=== PATIENT | female | born 1980 | race American Indian/Alaskan Native ===

== ENCOUNTER 2020-06-07 13:20 | Emergency (ER) | payer MEDICAID ==
--- NOTE | 2020-06-07 16:26 | Emergency Department Report ---
Blank Doc - Documentation Documentation: 39-year-old female that presents with vaginal bleeding and pelvic pain. This initial assessment/diagnostic orders/clinical plan/treatment(s) is/are subject to change based on patient's health status, clinical progression and re- assessment by fellow clinical providers in the ED. Further treatment and workup at subsequent clinical providers discretion. Patient/guardians urged not to elope from the ED as their condition may be serious if not clinically assessed and managed. Initial orders include: 1- Patient sent to [facility] for further evaluation and treatment 2- labs 3- UA 4- US OB
[2020-06-07 17:02] LABS: Bilirubin,Urine NEG (Negative); Blood,Urine MOD (Negative); Color,Urine Yellow (Yellow); Mucus,Urine FEW /HPF; Protein,Urine <15 mg/dL mg/dL (Negative); Urobilinogen,Urine < 2.0 mg/dL (<2.0)
--- NOTE | 2020-06-07 17:47 | Ultrasound Report ---
ULTRASOUND OBSTETRIC INDICATION: pelvic pain and vaginal bleeding. TECHNIQUE: Transabdominal and Transvaginal. COMPARISON: None available. FINDINGS: GESTATIONAL SAC: Well-defined oval shape and intrauterine in location. YOLK SAC: No significant abnormality. EMBRYO/FETUS: - [place]-Rump Length = 5.8 cm = 12 weeks, 2 day(s). - Heart Rate = No cardiac activity detected. ADNEXA: No significant abnormality. FREE FLUID: None. ADDITIONAL FINDINGS: A 1.3 cm nabothian cyst is noted at the level of the cervix. Multiple probable s ubcentimeter fibroids are also noted. IMPRESSION: Sonographic evidence of a miscarriage. Please correlate with the clinical findings. Signer Name: Misael Gifford MD Signed: 06/07/2020 5:43 PM Workstation Name: [email or web address]
--- NOTE | 2020-06-07 17:47 | Ultrasound Report ---
ULTRASOUND OBSTETRIC INDICATION: pelvic pain and vaginal bleeding. TECHNIQUE: Transabdominal and Transvaginal. COMPARISON: None available. FINDINGS: GESTATIONAL SAC: Well-defined oval shape and intrauterine in location. YOLK SAC: No significant abnormality. EMBRYO/FETUS: - [place]-Rump Length = 5.8 cm = 12 weeks, 2 day(s). - Heart Rate = No cardiac activity detected. ADNEXA: No significant abnormality. FREE FLUID: None. ADDITIONAL FINDINGS: A 1.3 cm nabothian cyst is noted at the level of the cervix. Multiple probable s ubcentimeter fibroids are also noted. IMPRESSION: Sonographic evidence of a miscarriage. Please correlate with the clinical findings. Signer Name: Misael Gifford MD Signed: 06/07/2020 5:43 PM Workstation Name: [id number]
[2020-06-07 18:28] LABS: Basophils % (Auto) 0.3 % (0.0-1.8); Eosinophils # (Auto) 0.4 K/mm3 (0.0-0.4); Eosinophils % (Auto) 6.1 % (0.0-4.3); Hemoglobin 12.2 gm/dl (10.1-14.3); Lymphocytes # (Auto) 2.6 K/mm3 (1.2-5.4); Lymphocytes % (Auto) 35.4 % (13.4-35.0); Mean Corpuscular HGB Conc 35 % (30-34); Mean Corpuscular Volume 83 fl (79-97); Monocytes # (Auto) 0.3 K/mm3 (0.0-0.8); Monocytes % (Auto) 4.1 % (0.0-7.3); Platelet Count 161 K/mm3 (140-440); Red Blood Count 4.22 M/mm3 (3.65-5.03); Red Cell Distribution Width 12.7 % (13.2-15.2)
--- NOTE | 2020-06-07 22:31 | Emergency Department Report ---
ED Female HPI - General Chief complaint: Vaginal Bleeding Stated complaint: CRAMPING Time Seen by Provider: 06/07/20 16:25 Source: patient Mode of arrival: Ambulatory Limitations: No Limitations - History of Present Illness Initial comments: 39-year-old F [place] female presents emerged department reporting ~13 weeks developing some spotting to the vaginal area started this morning around 5 AM. Patient touch base with the hand tool filer around 6:30 AM at home advised to come to emergency department to be evaluated for a miscarriage. She reports having vague cramping and continued spotting with no nausea, vomiting, no fever, chills, sweats, no chest pain, no palpitations, no hemoptysis no hematemesis no hematochezia. MD Complaint: pelvic pain Location: suprapubic Radiation: suprapubic Severity: mild, moderate Quality: cramping Consistency: constant Improves with: none Worsens with: none Associated Symptoms: vaginal bleeding. denies: loss of appetite, dysuria, hematuria, syncope - Related Data Sexually active: No Allergies Allergy/AdvReac Type Severity Reaction Status Date / Time No Known Allergies Allergy Unverified 06/07/20 14:44 ED Review of Systems ROS: Stated complaint: CRAMPING Other details as noted in HPI Comment: All other systems reviewed and negative ED Past Medical Hx - Past Medical History Previous Medical History?: No - Surgical History Past Surgical History?: No - Social History Smoking Status: Never Smoker Substance Use Type: None ED Physical Exam - General Limitations: No Limitations General appearance: alert, in no apparent distress - Head Head exam: Present: atraumatic, normocephalic - Eye Eye exam: Present: normal appearance, PERRL, EOMI Pupils: Present: normal accommodation - ENT ENT exam: Present: normal exam, normal orophraynx, mucous membranes moist - Neck Neck exam: Present: normal inspection, full ROM - Respiratory Respiratory exam: Present: normal lung sounds bilaterally. Absent: respiratory distress, wheezes, rales, chest wall tenderness, accessory muscle use - Cardiovascular Cardiovascular Exam: Present: regular rate, normal rhythm. Absent: systolic murmur, diastolic murmur, rubs, gallop - GI/Abdominal GI/Abdominal exam: Present: soft, normal bowel sounds - Extremities Exam Extremities exam: Present: normal inspection - Back Exam Back exam: Present: normal inspection - Neurological Exam Neurological exam: Present: alert, oriented X3 - Psychiatric Psychiatric exam: Present: normal affect, normal mood - Skin Skin exam: Present: warm, dry, intact, normal color. Absent: rash ED Course Vital Signs 06/07/20 16:26 Temperature 98.4 F Pulse Rate 77 Respiratory 18 Rate Blood Pressure 128/74 O2 Sat by Pulse 100 Oximetry ED Medical Decision Making - Lab Data Result diagrams: 06/07/20 17:34 Lab Results 06/07/20 06/07/20 06/07/20 Range/Units 16:43 17:34 17:34 WBC 7.3 (4.5-11.0) K/mm3 RBC 4.22 (3.65-5.03) M/mm3 Hgb 12.2 (10.1-14.3) gm/dl Hct 35.0 (30.3-42.9) % MCV 83 (79-97) fl MCH 29 (28-32) pg MCHC 35 H (30-34) % RDW 12.7 L (13.2-15.2) % Plt Count 161 (140-440) K/mm3 Lymph % (Auto) 35.4 H (13.4-35.0) % [place] % (Auto) 4.1 (0.0-7.3) % Eos % (Auto) 6.1 H (0.0-4.3) % Baso % (Auto) 0.3 (0.0-1.8) % Lymph # (Auto) 2.6 (1.2-5.4) K/mm3 [place] # (Auto) 0.3 (0.0-0.8) K/mm3 Eos # (Auto) 0.4 (0.0-0.4) K/mm3 Baso # (Auto) 0.0 (0.0-0.1) K/mm3 Seg Neutrophils % 54.1 (40.0-70.0) % Seg Neutrophils # 4.0 (1.8-7.7) K/mm3 HCG, Quant 5995 H (0-4) mIU/mL Urine Color Yellow (Yellow) Urine Turbidity Clear (Clear) Urine pH 5.0 (5.0-7.0) Ur Specific [place] 1.017 (1.003-1.030) Urine Protein <15 mg/dl (Negative) mg/dL Urine Glucose (UA) Neg (Negative) mg/dL Urine Ketones Neg (Negative) mg/dL Urine Blood Mod (Negative) Urine Nitrite Neg (Negative) Urine Bilirubin Neg (Negative) Urine Urobilinogen < 2.0 (<2.0) mg/dL Ur Leukocyte Esterase Sm (Negative) Urine WBC (Auto) 1.0 (0.0-6.0) /HPF Urine RBC (Auto) 2.0 (0.0-6.0) /HPF U Epithel Cells (Auto) 2.0 (0-13.0) /HPF Urine Mucus Few /HPF Blood Type 06/07/20 Range/Units 17:34 WBC (4.5-11.0) K/mm3 RBC (3.65-5.03) M/mm3 Hgb (10.1-14.3) gm/dl Hct (30.3-42.9) % MCV (79-97) fl MCH (28-32) pg MCHC (30-34) % RDW (13.2-15.2) % Plt Count (140-440) K/mm3 Lymph % (Auto) (13.4-35.0) % [place] % (Auto) (0.0-7.3) % Eos % (Auto) (0.0-4.3) % Baso % (Auto) (0.0-1.8) % Lymph # (Auto) (1.2-5.4) K/mm3 [place] # (Auto) (0.0-0.8) K/mm3 Eos # (Auto) (0.0-0.4) K/mm3 Baso # (Auto) (0.0-0.1) K/mm3 Seg Neutrophils % (40.0-70.0) % Seg Neutrophils # (1.8-7.7) K/mm3 HCG, Quant (0-4) mIU/mL Urine Color (Yellow) Urine Turbidity (Clear) Urine pH (5.0-7.0) Ur Specific [place] (1.003-1.030) Urine Protein (Negative) mg/dL Urine Glucose (UA) (Negative) mg/dL Urine Ketones (Negative) mg/dL Urine Blood (Negative) Urine Nitrite (Negative) Urine Bilirubin (Negative) Urine Urobilinogen (<2.0) mg/dL Ur Leukocyte Esterase (Negative) Urine WBC (Auto) (0.0-6.0) /HPF Urine RBC (Auto) (0.0-6.0) /HPF U Epithel Cells (Auto) (0-13.0) /HPF Urine Mucus /HPF Blood Type B POSITIVE - Radiology Data Radiology results: report reviewed [facility] [address] [place] [address] Ultrasound Report Signed Patient: ESTEBAN SINCLAIR R#: [id number] : 1980 Acct:[id number] Age/Sex: 39 / F ADM Date: 06/07/20 Loc: ED Attending Dr: Ordering Physician: KARLY METCALF NP Date of Service: 06/07/20 Procedure(s): US OB <= 14 weeks fetus Accession Number(s): [id number] cc: KARLY METCALF NP ULTRASOUND OBSTETRIC INDICATION: pelvic pain and vaginal bleeding. TECHNIQUE: Transabdominal and Transvaginal. COMPARISON: None available. FINDINGS: GESTATIONAL SAC: Well-defined oval shape and intrauterine in location. YOLK SAC: No significant abnormality. EMBRYO/FETUS: - [place]-Rump Length = 5.8 cm = 12 weeks, 2 day(s). - Heart Rate = No cardiac activity detected. ADNEXA: No significant abnormality. FREE FLUID: None. ADDITIONAL FINDINGS: A 1.3 cm nabothian cyst is noted at the level of the cervix. Multiple probable subcentimeter fibroids are also noted. IMPRESSION: Sonographic evidence of a miscarriage. Please correlate with the clinical findings. Signer Name: Misael Gifford MD Signed: 06/07/2020 5:43 PM Workstation Name: [id number] Transcribed By: [place] Dictated By: Misael Gifford MD Electronically Authenticated By: Misael Gifford MD Signed Date/Time: 06/07/201742 DD/ 39 TD/TT: - Medical Decision Making This patient presents with vaginal bleeding in the first trimester, differential diagnosis includes ectopic , IUP, month threatened/inevitable , along with a completed . Patient is HDS and without a history of coagulopathy or infectious symptoms. The ultrasound does reveal an IUP at 12 with weeks without cardiac activity suggestive miscarriage Based on exam history and ED work-up patient presentation is not consistent with an ectopic , life-threatening coagulopathy, trauma, serious bacterial infection, central process or other emergency Critical care attestation.: If time is entered above; I have spent that time in minutes in the direct care of this critically ill patient, excluding procedure time. ED Disposition Clinical Impression: Spontaneous miscarriage Disposition: DC- TO HOME OR SELFCARE Is pt being admited?: No Does the pt Need Aspirin: No Condition: Stable Instructions: Miscarriage Additional Instructions: Please be sure to follow-up with your primary care provider/MAT PUNCHER for definitive treatment of your miscarriage. Be sure to call and schedule an appointment. At this present time no emergent medical condition is present and you should be able to have enough support with the assistance of your MAT PUNCHER during this unfortunate circumstance Referrals: SID JOHNSON MD [Staff Physician] - 3-5 Days
[2020-06-07 23:17] VITALS: BP 128/67
== END 2020-06-07 23:00 | disposition home or self-care (01) ==
LOC: ED 13:20
DX: O03.9 Complete or unspecified spontaneous abortion without complication (principal); Z91.013 Allergy to seafood; Z88.2 Allergy status to sulfonamides; Z3A.13 13 weeks gestation of pregnancy
CPT/HCPCS: 36415; 76801; 76817; 81001; 84702; 85025; 86900; 86901

== ENCOUNTER 2020-06-09 20:18 | Inpatient (IN) | payer MEDICAID ==
[2020-06-09] MEDS ORDERED: MINERAL OIL 30 ML ORAL LIQD PO PRN (21:16)
[2020-06-09] MEDS ORDERED: PROMETHAZINE 25 MG TAB PO PRN (21:16)
[2020-06-09] MEDS ORDERED: fentaNYL 100 MCG/2 ML INJ IV PRN (21:16)
[2020-06-09] MEDS ORDERED: NALOXONE 0.4 MG/1 ML INJ IV PRN (21:16)
[2020-06-09] MEDS ORDERED: ONDANSETRON 4 MG/2 ML INJ IV PRN (21:16)
[2020-06-09] MEDS ORDERED: ePHEDrine SULFATE 50 MG/1 ML INJ IV PRN (21:16)
[2020-06-09] MEDS ORDERED: ACETAMINOPHEN 325 MG TAB PO PRN (21:16)
--- NOTE | 2020-06-09 21:16 | History and Physical Report ---
History of Present Illness Date of examination: 06/09/20 (Pt is nervous about IOL) Date of admission: 06/09/2020 Chief complaint: IOL d/t IUFD @ 14 wks History of present illness: Pt presented to the [facility] ED on 06/07 with c/o vaginal bleeding. Ultrasound was completed and showed no cardiac activity. She was then seen in the office on 06/08 and 06/09 where u/s on 06/09 confirmed no cardiac activity. IOL to be initiated tonight. Of note, this , thickened nuchal translucency noted on AMFM testing. Past History : 5 Term Births: 1 Premature Births: 2 Living Children: 3 Para: 3 Prev : 2 Spont. Ab: 1 # 1 Delivery date: 1996 Weeks Gestation: ft Delivery type: Anesthesia type: none Delivery location: [place] Infant Sex: Male weight: 6-4 Comments: no complications # 2 Delivery date: 2009 Weeks Gestation: 32 Delivery type: Anesthesia type: general Delivery location: [place] Infant Sex: Female weight: 4-6 Comments: intolerance to labor. 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 of genital herpes: no Varicella/Chicken Pox Status: Previous Disease Genetic History ADVANCED MATERNAL AGE Congenital Heart Defect: Mom: no Dad: no Steven Disease: Mom: no Dad: no Thalassemia Mom: no Dad: no Neural Tube Defect Mom: no Dad: no Down's Syndrome Mom: no Dad: no Anil-Sachs Mom: no Dad: no Sickle Cell Disease/Trait Mom: no Dad: no Hemophilia Mom: no Dad: no Muscular Dystrophy Mom: no Dad: no Cystic Fibrosis Mom: no Dad: no [place] Chorea Mom: no Dad: no Mental Retardation Mom: no Dad: no Fragile X Mom: no Dad: no Other Genetic/Chromosomal Disorder Mom: no Dad: no Child w/other defect Mom: no Dad: no Enviromental Exposures Xray Exposure: no Medication, drug, or alcohol use since LMP: no Chemical/Other Exposure: no Exposure to Cat Liter: no Hx of Parvovirus (Fifth Disease): no Occupational Exposure to Children: none Active Medications (reviewed today): PROMETHAZINE HCL 25 MG ORAL TABLET (PROMETHAZINE HCL) 1 tab po q6hrs prn PNV GUMMIES () Current Allergies (reviewed today): * SHELLFISH (Critical) Past History Past Medical History: no pertinent history Past Surgical History: section (X2) Family/Genetic History: hypertension Social history: - Obstetrical History Expected Date of Delivery: 12/08/20 Actual Gestation: 14 Week(s) 0 Day(s) : 5 Para: 1 Hx # Term Pregnancies: 1 Number of Pregnancies: 2 Spontaneous Abortions: 0 Induced : 1 Number of Living Children: 3 Medications and Allergies Allergies Allergy/AdvReac Type Severity Reaction Status Date / Time No Known Allergies Allergy Unverified 06/07/20 14:44 Review of Systems All systems: negative - Vital Signs Vital signs: Vital Signs Pulse BP 80 139/83 06/09/20 20:59 06/09/20 20:59 Temp Pulse Resp BP Pulse Ox 80 139/83 06/09/20 20:59 06/09/20 20:59 - Physical Exam Breasts: Positive: deferred Cardiovascular: Regular rate, Normal S1, Normal S2 Lungs: Positive: Normal air movement Abdomen: Positive: normal appearance, soft, normal bowel sounds. Negative: distention, tenderness Genitourinary (Female): Positive: normal external genitalia, normal perenium Vulva: both: normal Vagina: Positive: normal moisture. Negative: discharge Cervix: Negative: lesion, discharge Uterus: Positive: normal size, normal contour Adnexa: both: normal Anus/Rectum: Positive: normal perianal skin, heme negative. Negative: rectal mass, hemorrhoids Extremities: Positive: normal Deep Tendon Reflex Grade: Normal +2 - Obstetrical Uterine Contraction Monitor Mode: External Uterine Contraction Pattern: Absent Results All other labs normal. Assessment and Plan A: 39 y.o. @ 14 wks, IOL d/t IUFD. Thickened nuchal translucency noted on AMFM testing. - Patient Problems (1) IUFD at less than 20 weeks of gestation Onset Date: ~06/07/20 Current Visit: Yes Status: Acute Plan to address problem: Admit to labor and delivery. Initiate IOL with vaginal cytotec 400 mcg. IV pain medication ordered.
[2020-06-09] MEDS ORDERED: miSOPROStol 200 MCG TAB VG ONE (21:21)
[2020-06-09] MEDS ORDERED: LACTATED RINGERS 1,000 ML IV SCH (21:30)
[2020-06-09] MEDS ORDERED: OXYTOCIN DRIP 30 UNITS/500 ML BAG IV SCH (22:00)
[2020-06-09 22:11] LABS: Hematocrit 36.4 % (30.3-42.9); Hemoglobin 12.1 gm/dl (10.1-14.3); Mean Corpuscular HGB Conc 33 % (30-34); Mean Corpuscular Volume 84 fl (79-97); Platelet Count 163 K/mm3 (140-440); Red Blood Count 4.34 M/mm3 (3.65-5.03); Red Cell Distribution Width 13.2 % (13.2-15.2)
[2020-06-09] MEDS ORDERED: miSOPROStol 100 MCG TAB ONE (22:40)
--- NOTE | 2020-06-09 22:54 | Event Note ---
Date: 06/09/20 (Cytotec placed vaginally) 400 mcg Cytotec placed. Cervical exam: /.
[2020-06-10] MEDS: BUTORPHANOL 2 MG/1 ML INJ IV PRN ×2 (01:55→05:35)
[2020-06-10] MEDS ORDERED: miSOPROStol 200 MCG TAB PO ONE (05:48)
[2020-06-10] MEDS ORDERED: miSOPROStol 200 MCG TAB VG ONE ×2 (05:48→21:21)
--- NOTE | 2020-06-10 06:10 | Progress Note ---
Assessment and Plan A: 39 y.o. IOL for IUFD @ 14 wks. - Patient Problems (1) IUFD at less than 20 weeks of gestation Onset Date: ~06/07/20 Current Visit: Yes Status: Acute Plan to address problem: 400 mcg Cytotec oral ordered. Continue with IOL for IUFD. Pain medication ordered for ctxs. RN to administer. Subjective - Subjective Date of service: 06/10/20 (Exam remains unchanged) Principal diagnosis: IUFD @ 14 wks Interval history: Pt presented to the [facility] ED on 06/07 with c/o vaginal bleeding. Ultrasound was completed and showed no cardiac activity. She was then seen in the office on 06/08 and 06/09 where u/s on 06/09 confirmed no cardiac activity. IOL to be initiated tonight. Of note, this , thickened nuchal translucency noted on AMFM testing. Past History : 5 Term Births: 1 Premature Births: 2 Living Children: 3 Para: 3 Prev : 2 Spont. Ab: 1 # 1 Delivery date: 1996 Weeks Gestation: ft Delivery type: Anesthesia type: none Delivery location: [place] Infant Sex: Male weight: 6-4 Comments: no complications # 2 Delivery date: 2009 Weeks Gestation: 32 Delivery type: Anesthesia type: general Delivery location: [place] Infant Sex: Female weight: 4-6 Comments: intolerance to labor. 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 of genital herpes: no Varicella/Chicken Pox Status: Previous Disease Genetic History ADVANCED MATERNAL AGE Congenital Heart Defect: Mom: no Dad: no Steven Disease: Mom: no Dad: no Thalassemia Mom: no Dad: no Neural Tube Defect Mom: no Dad: no Down's Syndrome Mom: no Dad: no Anil-Sachs Mom: no Dad: no Sickle Cell Disease/Trait Mom: no Dad: no Hemophilia Mom: no Dad: no Muscular Dystrophy Mom: no Dad: no Cystic Fibrosis Mom: no Dad: no [place] Chorea Mom: no Dad: no Mental Retardation Mom: no Dad: no Fragile X Mom: no Dad: no Other Genetic/Chromosomal Disorder Mom: no Dad: no Child w/other defect Mom: no Dad: no Enviromental Exposures Xray Exposure: no Medication, drug, or alcohol use since LMP: no Chemical/Other Exposure: no Exposure to Cat Liter: no Hx of Parvovirus (Fifth Disease): no Occupational Exposure to Children: none Active Medications (reviewed today): PROMETHAZINE HCL 25 MG ORAL TABLET (PROMETHAZINE HCL) 1 tab po q6hrs prn PNV GUMMIES () Current Allergies (reviewed today): * SHELLFISH (Critical) Patient reports: contractions Objective - Vital Signs Vital Signs: Vital Signs - 12hr 06/09/20 06/09/20 06/09/20 20:59 21:58 22:00 Temperature 98.9 F Pulse Rate 80 70 88 Respiratory 12 Rate Blood Pressure 139/83 161/78 Blood Pressure 148/84 [Left] O2 Sat by Pulse Oximetry 06/09/20 06/09/20 06/09/20 22:01 22:48 23:34 Temperature Pulse Rate 70 77 79 Respiratory Rate Blood Pressure 148/84 137/91 136/100 Blood Pressure [Left] O2 Sat by Pulse Oximetry 06/10/20 06/10/20 06/10/20 00:54 00:55 00:59 Temperature Pulse Rate 76 69 83 Respiratory Rate Blood Pressure 140/72 Blood Pressure [Left] O2 Sat by Pulse 99 97 Oximetry 06/10/20 06/10/20 06/10/20 01:02 01:04 01:08 Temperature Pulse Rate 81 88 87 Respiratory Rate Blood Pressure 136/75 Blood Pressure [Left] O2 Sat by Pulse 97 94 Oximetry 06/10/20 06/10/20 06/10/20 01:09 01:14 01:19 Temperature Pulse Rate 67 72 76 Respiratory Rate Blood Pressure Blood Pressure [Left] O2 Sat by Pulse 100 97 94 Oximetry 06/10/20 06/10/20 06/10/20 01:24 01:29 01:34 Temperature Pulse Rate 80 81 83 Respiratory Rate Blood Pressure Blood Pressure [Left] O2 Sat by Pulse 99 98 99 Oximetry 06/10/20 06/10/20 06/10/20 01:39 01:44 01:47 Temperature Pulse Rate 71 86 69 Respiratory Rate Blood Pressure 126/82 Blood Pressure [Left] O2 Sat by Pulse 99 98 Oximetry 06/10/20 06/10/20 06/10/20 01:49 01:54 01:59 Temperature Pulse Rate 66 86 85 Respiratory Rate Blood Pressure Blood Pressure [Left] O2 Sat by Pulse 100 99 97 Oximetry 06/10/20 06/10/20 06/10/20 02:01 02:04 02:09 Temperature Pulse Rate 86 85 96 H Respiratory Rate Blood Pressure Blood Pressure [Left] O2 Sat by Pulse 94 96 97 Oximetry 06/10/20 06/10/20 06/10/20 02:14 02:19 02:20 Temperature Pulse Rate 89 92 H 85 Respiratory Rate Blood Pressure Blood Pressure [Left] O2 Sat by Pulse 96 97 94 Oximetry 06/10/20 06/10/20 06/10/20 02:24 02:29 02:32 Temperature Pulse Rate 78 85 85 Respiratory Rate Blood Pressure 120/63 Blood Pressure [Left] O2 Sat by Pulse 98 95 Oximetry 06/10/20 06/10/20 06/10/20 02:34 02:39 02:44 Temperature Pulse Rate 82 84 84 Respiratory Rate Blood Pressure Blood Pressure [Left] O2 Sat by Pulse 97 97 96 Oximetry 06/10/20 06/10/20 06/10/20 02:53 02:58 03:03 Temperature Pulse Rate 95 H 93 H 97 H Respiratory Rate Blood Pressure Blood Pressure [Left] O2 Sat by Pulse 97 99 96 Oximetry 06/10/20 06/10/20 06/10/20 03:08 03:13 03:17 Temperature Pulse Rate 87 88 86 Respiratory Rate Blood Pressure 130/83 Blood Pressure [Left] O2 Sat by Pulse 98 98 Oximetry 06/10/20 06/10/20 06/10/20 03:18 03:23 03:28 Temperature Pulse Rate 93 H 80 76 Respiratory Rate Blood Pressure Blood Pressure [Left] O2 Sat by Pulse 100 100 98 Oximetry 06/10/20 06/10/20 06/10/20 03:33 03:38 03:43 Temperature Pulse Rate 78 82 86 Respiratory Rate Blood Pressure Blood Pressure [Left] O2 Sat by Pulse 98 99 99 Oximetry 06/10/20 06/10/20 06/10/20 03:48 03:53 03:58 Temperature Pulse Rate 83 87 78 Respiratory Rate Blood Pressure Blood Pressure [Left] O2 Sat by Pulse 98 97 98 Oximetry 06/10/20 06/10/20 06/10/20 04:02 04:03 04:08 Temperature Pulse Rate 82 78 79 Respiratory Rate Blood Pressure 123/71 Blood Pressure [Left] O2 Sat by Pulse 99 97 Oximetry 06/10/20 06/10/20 06/10/20 04:13 04:18 04:23 Temperature Pulse Rate 86 87 91 H Respiratory Rate Blood Pressure Blood Pressure [Left] O2 Sat by Pulse 97 98 97 Oximetry 06/10/20 06/10/20 06/10/20 04:28 04:33 04:38 Temperature Pulse Rate 84 87 87 Respiratory Rate Blood Pressure Blood Pressure [Left] O2 Sat by Pulse 99 98 98 Oximetry 06/10/20 06/10/20 06/10/20 04:43 04:47 04:48 Temperature Pulse Rate 83 84 89 Respiratory Rate Blood Pressure 124/68 Blood Pressure [Left] O2 Sat by Pulse 99 99 Oximetry 06/10/20 06/10/20 06/10/20 04:53 04:58 05:03 Temperature Pulse Rate 82 86 83 Respiratory Rate Blood Pressure Blood Pressure [Left] O2 Sat by Pulse 97 98 98 Oximetry 06/10/20 06/10/20 06/10/20 05:08 05:13 05:18 Temperature Pulse Rate 74 94 H 84 Respiratory Rate Blood Pressure Blood Pressure [Left] O2 Sat by Pulse 98 99 98 Oximetry 06/10/20 06/10/20 06/10/20 05:23 05:28 05:32 Temperature Pulse Rate 84 91 H 86 Respiratory Rate Blood Pressure 145/84 Blood Pressure [Left] O2 Sat by Pulse 98 100 Oximetry 06/10/20 06/10/20 06/10/20 05:33 05:35 05:38 Temperature Pulse Rate 99 H 89 82 Respiratory Rate Blood Pressure Blood Pressure [Left] O2 Sat by Pulse 99 94 96 Oximetry 1206/10/20 06/10/20 05:43 05:48 05:53 Temperature Pulse Rate 83 84 80 Respiratory Rate Blood Pressure Blood Pressure [Left] O2 Sat by Pulse 97 96 96 Oximetry 06/10/20 06/10/20 05:58 06:03 Temperature Pulse Rate 84 80 Respiratory Rate Blood Pressure Blood Pressure [Left] O2 Sat by Pulse 95 97 Oximetry - Exam Breasts: deferred Cardiovascular: Regular rate Lungs: Normal air movement Abdomen: Present: normal appearance, soft Vulva: both: normal Uterus: Present: normal Cervical Dilatation: 1 Cervical Effacement Percentage: 50 station: -4 Uterine Contraction Intensity: Moderate Extremities: normal Deep Tendon Reflex Grade: Normal +2 - Labs Labs: Laboratory Results - last 24 hr 06/09/20 06/09/20 06/09/20 21:29 21:29 21:29 WBC 7.2 RBC 4.34 Hgb 12.1 Hct 36.4 MCV 84 MCH 28 MCHC 33 RDW 13.2 Plt Count 163 Syphilis IgG Antibody Nonreactive Blood Type B POSITIVE Antibody Screen Negative
[2020-06-10] MEDS: fentaNYL 100 MCG/2 ML INJ IV PRN ×2 (08:06→10:52)
--- NOTE | 2020-06-10 10:45 | Procedure Note ---
OB Delivery Note - Delivery Date of Delivery: 06/10/20 Business Information Manager: ROSA KATE Estimated blood loss: <100cc - Vaginal Intrapartum events: other(please specify) (~13wk IUFD) Delivery induction: misoprostol Route of delivery: Delivery placenta: spontaneous (delivered with nonviable demise) Anesthesia: intravenous Delivery comments: called to room for delivery of nonviable demise, fetus delivered with BOW and placenta all together. appears to be complete. lochia scant. pt reports pain and cramping completely resolved w/ delivery. will check H&H in 4 hours and consider d/c home this afternoon if stable. - A at 1 minute: 0 at 5 minutes: 0 Infant Gender: Ambiguous
[2020-06-10] MEDS ORDERED: IBUPROFEN 800 MG TAB PO ONE (14:00)
[2020-06-10 14:21] VITALS: BP 113/71
--- NOTE | 2020-06-10 14:29 | Discharge Summary ---
Providers - Providers Date of Admission: 06/09/20 21:17 Date of discharge: 06/10/20 (desires c/s home) Attending physician: SID JOHNSON Primary care physician: SID JOHNSON Hospitalization Reason for admission: IUFD Delivery: Discharge diagnosis: other (Vaginal of 14 weeks demise) Hospital course: uncomplicated IOL for 14w IUFD Condition at discharge: Good Disposition: DC-[id number] STILL A PATIENT - Discharge Diagnoses (1) IUFD at less than 20 weeks of gestation Status: Acute (2) Spontaneous miscarriage Status: Acute Plan - Discharge Medications Prescriptions: Ibuprofen [Motrin 800 MG tab] 800 mg PO Q8HR PRN #30 tablet PRN Reason: Pain - Provider Discharge Summary Activity: routine, no sex for 6 weeks, no heavy lifting 4 weeks, no strenuous exercise Diet: routine Instructions: routine Additional instructions: [] Smoking cessation referral if applicable(refer to patient education folder for contact #) [] Refer to [facility]'s [facility] Booklet Call your doctor immediately for: * Fever > 100.5 * Heavy vaginal bleeding ( >1 pad per hour) * Severe persistent headache * Shortness of breath * Reddened, hot, painful area to leg or breast * Drainage or odor from incision. * Keep incision clean and dry at all times and follow doctor's instructions regarding bathing/showering - Follow up plan Follow up: SID JOHNSON MD [Primary Care Provider] - 07/09/20 (Please call [phone] to schedule a follow up visit in 4 weeks. Call for any questions or concerns.)
[2020-06-10 14:46] LABS: Hematocrit 34.6 % (30.3-42.9); Hemoglobin 11.6 gm/dl (10.1-14.3)
== END 2020-06-10 15:45 | disposition home or self-care (01) | DRG 775 ==
LOC: TRG 20:18 → LD 20:21 → TRG 21:17
PROVIDERS: ADMIT Obstetrics & Gynecology; ATTEND Obstetrics & Gynecology
PROC: 3E033VJ Introduction of Other Hormone into Peripheral Vein, Percutaneous Approach (ICD-10-PCS; principal; 2020-06-10)
PROC: 10E0XZZ Delivery of Products of Conception, External Approach (ICD-10-PCS; 2020-06-10)
DX: O36.4XX0 Maternal care for intrauterine death, not applicable or unspecified (principal); Z37.1 Single stillbirth; Z3A.14 14 weeks gestation of pregnancy; Z82.49 Family history of ischemic heart disease and other diseases of the circulatory system; Z20.828 Contact with and (suspected) exposure to other viral communicable diseases
CPT/HCPCS: 36415; 85014; 85018; 85027; 86592; 86850; 86900; 86901; 96374; G0378; J0595; J3010; J7120; U0003

== ENCOUNTER 2020-12-03 10:42 | Emergency (ER) | payer MEDICAID ==
[2020-12-03 11:12] VITALS: BP 115/64
[2020-12-03 11:58] LABS: Bilirubin,Urine NEG (Negative); Blood,Urine MOD (Negative); Color,Urine Yellow (Yellow); Mucus,Urine FEW /HPF; Protein,Urine <15 mg/dL mg/dL (Negative); Urobilinogen,Urine < 2.0 mg/dL (<2.0)
[2020-12-03 12:14] LABS: Basophils % (Auto) 0.6 % (0.0-1.8); Eosinophils # (Auto) 0.4 K/mm3 (0.0-0.4); Eosinophils % (Auto) 5.5 % (0.0-4.3); Hemoglobin 12.2 gm/dl (10.1-14.3); Lymphocytes # (Auto) 2.4 K/mm3 (1.2-5.4); Lymphocytes % (Auto) 33.6 % (13.4-35.0); Mean Corpuscular HGB Conc 33 % (30-34); Mean Corpuscular Volume 84 fl (79-97); Monocytes # (Auto) 0.2 K/mm3 (0.0-0.8); Monocytes % (Auto) 3.5 % (0.0-7.3); Platelet Count 185 K/mm3 (140-440); Red Blood Count 4.41 M/mm3 (3.65-5.03); Red Cell Distribution Width 13.2 % (13.2-15.2)
--- NOTE | 2020-12-03 13:08 | Emergency Department Report ---
ED HPI - General Chief complaint: Vaginal Bleeding Stated complaint: VAG BLEEDING Time Seen by Provider: 12/03/20 12:33 Source: patient Mode of arrival: Ambulatory Limitations: No Limitations - History of Present Illness Initial comments: Patient is a 40-year-old female presents emergency room with complaints of vaginal spotting that began yesterday. She states yesterday she had some mild lower abdominal cramping but that has resolved. She denies any heavy bleeding or passing clots. She states that she went to her [facility] Dr[facility] Johnson three days ago and she reports she had ultrasound performed at that time and was approximately 6 weeks and she states that they saw a intrauterine gestational sac. She states that she went to the [facility] office today but they did not have ultrasound available and was advised to be seen in the emergency department due to spotting. Patient states that she recently suffered a miscarriage in May 2020 and she was approximately 18 weeks at that time. She states her last menstrual cycle was 10/03/2020. She denies any fever, nausea, vomiting, diarrhea, urinary symptoms, abnormal vaginal discharge. Past medical history of hypertension. No allergies to medications. /P: 3/A: 1 - Related Data Previous Rx's Medication Instructions Recorded Last Taken Type Ibuprofen [Motrin 800 MG tab] 800 mg PO Q8HR PRN #30 tablet 06/10/20 Unknown Rx Allergies Allergy/AdvReac Type Severity Reaction Status Date / Time shellfish derived Allergy Swelling Verified 06/09/20 21:36 ED Review of Systems ROS: Stated complaint: VAG BLEEDING Other details as noted in HPI Comment: All other systems reviewed and negative ED Past Medical Hx - Past Medical History Previous Medical History?: Yes Hx Hypertension: Yes Hx Congestive Heart Failure: No Hx Diabetes: No Hx Deep Vein Thrombosis: No Hx Renal Disease: No Hx Sickle Cell Disease: No Hx Seizures: No Hx Asthma: No Hx COPD: No Hx HIV: No - Surgical History Past Surgical History?: Yes Additional Surgical History: - Social History Smoking Status: Never Smoker - Medications Home Medications: Home Medications Medication Instructions Recorded Confirmed Last Taken Type Ibuprofen [Motrin 800 MG tab] 800 mg PO Q8HR PRN #30 tablet 06/10/20 Unknown Rx ED Physical Exam - General Limitations: No Limitations General appearance: alert, in no apparent distress - Head Head exam: Present: atraumatic, normocephalic - Eye Eye exam: Present: normal appearance - ENT ENT exam: Present: mucous membranes moist - Respiratory Respiratory exam: Present: normal lung sounds bilaterally. Absent: respiratory distress, wheezes, rales, rhonchi, stridor, chest wall tenderness, accessory muscle use, decreased breath sounds, prolonged expiratory - Cardiovascular Cardiovascular Exam: Present: regular rate, normal rhythm, normal heart sounds. Absent: systolic murmur, diastolic murmur, rubs, gallop - GI/Abdominal GI/Abdominal exam: Present: soft, normal bowel sounds. Absent: distended, tenderness, guarding, rebound, rigid - Neurological Exam Neurological exam: Present: alert, oriented X3 - Psychiatric Psychiatric exam: Present: normal affect, normal mood - Skin Skin exam: Present: warm, dry, intact ED Course Vital Signs 12/03/20 11:11 Temperature 98.7 F Pulse Rate 74 Respiratory 18 Rate Blood Pressure 115/64 [Right] O2 Sat by Pulse 98 Oximetry - Consultations Consultation #1: 12/03/[address] Johnson, [facility] please see her note, she is aware of patient's presentation and results, she spoke with patient and has scheduled patient for an appointment on Sunday12/06/2020 ED Medical Decision Making - Lab Data Result diagrams: 12/03/20 11:35 Lab Results 12/03/20 12/03/20 12/03/20 Range/Units 11:23 11:35 11:35 WBC 7.0 (4.5-11.0) K/mm3 RBC 4.41 (3.65-5.03) M/mm3 Hgb 12.2 (10.1-14.3) gm/dl Hct 37.0 (30.3-42.9) % MCV 84 (79-97) fl MCH 28 (28-32) pg MCHC 33 (30-34) % RDW 13.2 (13.2-15.2) % Plt Count 185 (140-440) K/mm3 Lymph % (Auto) 33.6 (13.4-35.0) % Nash % (Auto) 3.5 (0.0-7.3) % Eos % (Auto) 5.5 H (0.0-4.3) % Baso % (Auto) 0.6 (0.0-1.8) % Lymph # (Auto) 2.4 (1.2-5.4) K/mm3 Nash # (Auto) 0.2 (0.0-0.8) K/mm3 Eos # (Auto) 0.4 (0.0-0.4) K/mm3 Baso # (Auto) 0.0 (0.0-0.1) K/mm3 Seg Neutrophils % 56.8 (40.0-70.0) % Seg Neutrophils # 4.0 (1.8-7.7) K/mm3 HCG, Quant 76573 H (0-4) mIU/mL Urine Color Yellow (Yellow) Urine Turbidity Slightly-cloudy (Clear) Urine pH 5.0 (5.0-7.0) Ur Specific [place] 1.017 (1.003-1.030) Urine Protein <15 mg/dl (Negative) mg/dL Urine Glucose (UA) Neg (Negative) mg/dL Urine Ketones Neg (Negative) mg/dL Urine Blood Mod (Negative) Urine Nitrite Neg (Negative) Urine Bilirubin Neg (Negative) Urine Urobilinogen < 2.0 (<2.0) mg/dL Ur Leukocyte Esterase Tr (Negative) Urine WBC (Auto) 1.0 (0.0-6.0) /HPF Urine RBC (Auto) 2.0 (0.0-6.0) /HPF U Epithel Cells (Auto) 6.0 (0-13.0) /HPF Urine Mucus Few /HPF - Radiology Data Radiology results: report reviewed Ordering Physician: ELEUTERIO MARQUES Date of Service: 12/03/20 Procedure(s): US OB transvaginal Accession Number(s): [id number] cc: ELEUTERIO MARQUES EARLY OBSTETRICAL ULTRASOUND INDICATION: Early , spotting, history of , history of spontaneous COMPARISON: 06/07/2020 TECHNIQUE: Endovaginal FINDINGS: Retroflexed uterus is noted with what appears to be a central leiomyoma measuring 2.4 cm. In the anterior aspect of the lower fundus and upper body region of the uterus, appearing to be within the area of the myometrium and only a a few millimeters from the surface of the uterus, a small gestational sac is seen with yolk sac and pole noted. Cardiac activity was noted with heart rate of 118 bpm. Estimated gestational age by crown-rump length is 6 weeks 0 days. No adjacent hemorrhage is seen. The endometrial stripe appears to continue more centrally and superiorly in the fundus. IMPRESSION: Early intrauterine is confirmed. However, the is quite eccentric and appears to be extending well into the myometrial layer anteriorly. This is in the general area expected for a scar and this raises the risk for complication accordingly. Close high risk clinical and sonographic follow-up are recommended. Reviewed with a colleague Signer Name: Jose Ernandez MD Signed: 12/03/2020 3:08 PM Workstation Name: [id number] Transcribed By: DWIGHT Dictated By: Jose Ernandez MD Electronically Authenticated By: Jose Ernandez MD Signed Date/Time: 12/03/20 1508 DD/ 1504 TD/TT: - Medical Decision Making Patient is a 40-year-old female presents emergency room with complaints of vaginal spotting that began yesterday. She states yesterday she had some mild lower abdominal cramping but that has resolved. She denies any heavy bleeding or passing clots. She states that she went to her [facility] Dr[facility] Johnson three days ago and she reports she had ultrasound performed at that time and was approximately 6 weeks and she states that they saw a intrauterine gestational sac. She states that she went to the [facility] office today but they did not have ultrasound available and was advised to be seen in the emergency department due to spotting. Patient states that she recently suffered a miscarriage in May 2020 and she was approximately 18 weeks at that time. She states her last menstrual cycle was 10/03/2020. She denies any fever, nausea, vomiting, diarrhea, urinary symptoms, abnormal vaginal discharge. Past medical history of hypertension. No allergies to medications. /P: 3/A: 1. vitals are normal. pt is Rh positive upon chart review. labs are stable. ua is WNL. OB US: Early intrauterine is confirmed. However, the is quite eccentric and appears to be extending well into the myometrial layer anteriorly. This is in the general area expected for a scar and this raises the risk for complication accordingly. Close high risk clinical and sonographic follow-up are recommended. Discussed case with Dr. Johnson, [facility] please see her note, she is aware of patient's presentation and results, she spoke with patient and has scheduled patient for an appointment on Sunday12/06/2020. advised pt May take Tylenol as needed for any discomfort. Increase your fluid intake. Please practice pelvic rest. Follow-up with your [facility]. Return to emergency room immediately for any new or worsening symptoms including but not limited to worsening abdominal pain or worsening vaginal bleeding, etc. Critical care attestation.: If time is entered above; I have spent that time in minutes in the direct care of this critically ill patient, excluding procedure time. ED Disposition Clinical Impression: Vaginal spotting, Abnormal US Qualifiers: Weeks of gestation: less than 8 weeks Qualified Code(s): Z3A.01 - Less than 8 weeks gestation of Disposition: TO HOME OR SELFCARE Is pt being admited?: No Does the pt Need Aspirin: No Condition: Stable Additional Instructions: May take Tylenol as needed for any discomfort. Increase your fluid intake. Please practice pelvic rest. Follow-up with your [facility]. Return to emergency room immediately for any new or worsening symptoms including but not limited to worsening abdominal pain or worsening vaginal bleeding, etc. Referrals: SID JOHNSON MD [Staff Physician] - 2-3 Days Time of Disposition: 15:35 Print Language: CHINESE
--- NOTE | 2020-12-03 15:12 | Ultrasound Report ---
EARLY OBSTETRICAL ULTRASOUND INDICATION: Early , spotting, history of , history of spontaneous COMPARISON: 06/07/2020 TECHNIQUE: Endovaginal FINDINGS: Retroflexed uterus is noted with what appears to be a central leiomyoma measuring 2.4 cm. I n the anterior aspect of the lower fundus and upper body region of the uterus, appearing to be within the area of the myometrium and only a a few millimeters from the surface of the uterus, a small gest ational sac is seen with yolk sac and pole noted. Cardiac activity was noted with heart r ate of 118 bpm. Estimated gestational age by crown-rump length is 6 weeks 0 days. No adjacent hemorrh age is seen. The endometrial stripe appears to continue more centrally and superiorly in the fundus. IMPRESSION: Early intrauterine is confirmed. However, the is quite eccentric and appears to be extending well into the myometrial layer anteriorly. This is in the general area expect ed for a scar and this raises the risk for complication accordingly. Close high risk clinic al and sonographic follow-up are recommended. Reviewed with a colleague Signer Name: Jose Ernandez MD Signed: 12/03/2020 3:08 PM Workstation Name: [id number]
--- NOTE | 2020-12-03 15:33 | Event Note ---
Date: 12/03/20 Findings on wolfgang were reviewed with pt. She was advised to keep appointment scheduled for Sunday in the office. SAB precautions were reviewed in the office. Pt advised to await full discharge from the ED. All questions were addressed and answered. I also spoke with ER provider Emiliana and advised of plan of care and that pt is clear for d/c to home from obgyn standpoint. She expressed no questions at this time.
== END 2020-12-03 16:15 | disposition home or self-care (01) ==
LOC: ED 10:42
DX: O20.8 Other hemorrhage in early pregnancy (principal); O28.3 Abnormal ultrasonic finding on antenatal screening of mother; I10 Essential (primary) hypertension; Z3A.01 Less than 8 weeks gestation of pregnancy; Z98.890 Other specified postprocedural states; Z79.1 Long term (current) use of non-steroidal anti-inflammatories (NSAID); Z91.013 Allergy to seafood
CPT/HCPCS: 36415; 76801; 76817; 81001; 84702; 85025